=== PATIENT | male | born 1935 | race Caucasian/White ===

== ENCOUNTER 2017-10-21 10:14 | Outpatient (CLI) | payer MEDICARE, OTHER ==
[2017-10-21 11:57] LABS: BASOPHILS % 0.3 (0.0-1.5); EOSINOPHILS % 4.1 % (0.0-6.8); MEAN CORPUSCULAR HEMOGLOBIN 33.2 pg (28.0-34.0); MONOCYTES % 3.9 % (0.0-11.0); NEUTROPHILS # 6.2 # k/uL (1.4-7.7)
[2017-10-21 13:16] LABS: eGFR (African) > 60; eGFR (Non-African) > 60
== END 2017-10-21 10:15 ==
LOC: CARD 10:14
PROVIDERS: ATTEND Nurse Practitioner
DX: I10 Essential (primary) hypertension (principal); R06.02 Shortness of breath; E11.9 Type 2 diabetes mellitus without complications; R07.2 Precordial pain
CPT/HCPCS: 36415; 80053; 80061; 83036; 84443; 85025; G0463